=== PATIENT | male | born 1950 | race Caucasian/White ===

== ENCOUNTER → 2020-01-22 | Day surgery (SDC) | payer OTHER ==
[~2020-01-22] VITALS: Ht 134.6 cm; Wt 70.8 kg
[2020-01-22 07:36] VITALS: BP 140/85
[2020-01-22 12:32] VITALS: BP 150/85
== END | disposition home or self-care (01) ==
LOC: GI 07:17 → OR 10:00 → GI 10:00
PROVIDERS: ATTEND Internal Medicine Gastroenterology
DX: D64.9 Anemia, unspecified (principal); K64.8 Other hemorrhoids; K63.89 Other specified diseases of intestine; K44.9 Diaphragmatic hernia without obstruction or gangrene; I12.9 Hypertensive chronic kidney disease with stage 1 through stage 4 chronic kidney disease, or unspecified chronic kidney disease; E11.22 Type 2 diabetes mellitus with diabetic chronic kidney disease; N18.9 Chronic kidney disease, unspecified; E78.5 Hyperlipidemia, unspecified; Z79.899 Other long term (current) drug therapy
CPT/HCPCS: 43235; 45378; J1200; J1610; J2250; J2310; J3010; J3490